=== PATIENT | female | born 1980 | race Native Hawaiian/Other Pacific Islander ===

== ENCOUNTER 2017-04-13 09:21 | Observation (INO) | payer OTHER ==
[2017-04-12 11:06] VITALS: BMI 20.5
[2017-04-13] MEDS ORDERED: Propofol 10 mg/ml Inj (20 ML) ONE (10:52)
[2017-04-13] MEDS ORDERED: Rocuronium 10 mg/ml (5 ml) ONE (10:52)
[2017-04-13] MEDS ORDERED: Midazolam 2 MG/2 ML VIAL ONE (10:52)
[2017-04-13] MEDS ORDERED: Lidocaine 4% (Laryng-O-Jet) Kit MM ONE (10:52)
[2017-04-13] MEDS ORDERED: Succinylcholine 200 mg/10 ml Inj IV ONE (10:52)
[2017-04-13 10:53] LABS: BASO % 0.6 % (0.0-2.0); EOS % 0.4 % (0.0-4.0); HEMATOCRIT 39.5 % (34.0-47.0); LYMPH # 2.1 K/uL (1.0-4.3); LYMPH % 52.5 % (20.0-40.0); MEAN CELL VOLUME 93.2 fl (81.0-99.0); MEAN CORPUSCULAR HEMOGLOBIN 31.1 pg (27.0-31.0); MEAN CORPUSCULAR HGB CONC 33.4 g/dL (33.0-37.0); MEAN PLATELET VOLUME 10.2 fl (7.2-11.7); MONO # 0.2 K/uL (0.0-0.8); MONO % 4.7 % (0.0-10.0); NEUT # 1.6 K/uL (1.8-7.0); NEUT % 41.8 % (50.0-75.0); NRBC % 0.1 % (0.0-0.0); RED CELL DISTRIBUTION WIDTH 12.8 % (11.5-14.5); WHITE BLOOD COUNT 3.9 K/uL (4.8-10.8)
[2017-04-13] MEDS ORDERED: Bupivacaine 0.5% Inj(30mL) ONE (11:04)
[2017-04-13] MEDS ORDERED: Desflurane Inhalation Anesthetic Liq (240 ml) ONE (11:25)
[2017-04-13] MEDS ORDERED: Lactated Ringer's 1,000 ML IV ONE ×2 (11:35)
[2017-04-13] MEDS ORDERED: Bupivacaine 0.5% 50 ML IJ ONE ×2 (11:57)
[2017-04-13] MEDS ORDERED: ePHEDrine 50 mg/ml Inj ONE (12:18)
[2017-04-13] MEDS ORDERED: Lactated Ringer's 1,000 ML IV SCH (14:11)
[2017-04-13] MEDS: HYDROmorphone 0.5 mg/0.5 ml ISec IVP PRN ×3 (14:43→15:15)
[2017-04-13] MEDS ORDERED: DiphenhydrAMINE 50 mg/ml Inj IVP PRN (16:24)
[2017-04-13] MEDS ORDERED: Oxycodone/Acetaminophen 5/325 mg Tab PO ONE (17:40)
[2017-04-13] MEDS: Oxycodone/Acetaminophen 5/325 mg Tab PO PRN (23:19)
[2017-04-14] MEDS ORDERED: Vitamins A & D Oint UD Foilpak ONE (03:11)
[2017-04-14] MEDS: Oxycodone/Acetaminophen 5/325 mg Tab PO PRN (08:18)
[2017-04-14 09:56] VITALS: RESP 20
[2017-04-14 11:33] VITALS: BP 90/49; PULSE 60; TEMP 98; O2SAT 100
--- NOTE | 2017-04-21 14:09 | OP ---
PROCEDURE DATE: 04/13/2017 SURGEON: Dr. Filipe Salguero MD TRACK REPAIR LABORER: Riley Ramsey MD. PREOPERATIVE DIAGNOSES: Dysmenorrhea, dyspareunia, pelvic pain, dysuria, bladder pain, rule out endometriosis, uterine septum. 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 Riley Ramsey is separately dictating incidental appendectomy COMPLICATIONS: None. SPECIMENS: Ovarian adhesions, anterior rectal lesion, left periureteral endometriosis, left uterosacral endometriosis, left ovarian fossa endometriosis, left perirectal endometriosis, right periureteral endometriosis, right iliac artery endometriosis, right periureteral endometriosis, anterior rectal endometriosis, right uterosacral endometriosis, right perirectal endometriosis, right abdominal wall, and appendix. ESTIMATED BLOOD LOSS: Minimal. INDICATION FOR PROCEDURE: This patient is a 37-year-old female with a prior surgery for a large uterine septum as well as a vaginal septum. She had symptomatology, which was mostly pain with most prominent symptoms being dyspareunia and bladder pain. Prior to the surgery, she was counseled with regard to the risk and benefits of the procedure and the possibility that the surgery may correct her symptoms. She was also counseled with regard to the potential risk of surgery including but not limited to bleeding, infection, bowel and bladder injury, and she also understood that given the complexity of the procedure, she would require ureteral stenting with injection of dye in order to identify the ureters with the robotic surgery for the dissection of the possible endometriosis. She signed the consent and she was taken to the OR. DESCRIPTION OF PROCEDURE: After the patient signed the consent, she was taken to the OR. She was placed under anesthesia in the dorsal lithotomy position. Extensive padding was placed in every area prone to compression. At this point, the patient was prepped and draped in a standard fashion and a timeout was performed according to the hospital procedures. At this point, a cystoscopy was introduced into the bladder under direct vision. A foster cystoscopy was performed and attention was paid to both ureteral orifices, which were in the normal anatomic position. The left ureteral orifice was catheterized with a Chinese open-ended ureteral catheter. A solution of ICG was then injected for a total of 5 mL into the left ureter after the ureteral catheter was advanced into the distal ureter. The ureteral catheter was then removed. Attention was then paid to the right ureteral orifice at which point, the catheter was advanced to the level of the right distal ureter and an additional 5 mL of IC green were injected into the right ureter. The ureteral catheter was then removed. The bladder was inspected and noted to be free of tumor, stones or bleeding sources. The cystoscope was then removed and a 16-Chinese Gilbert catheter was placed. At this point, attention was in the vaginal area where a speculum was placed in the vagina. The cervix appeared to be overall normal with the exception of some mild signs of slightly enlarged cervical ostia due to the patient's prior LEEP surgery. There was abnormality on the right hand side by the cervix at the level of the sulcus and fornix where a large defect was noticed in the top vaginal wall. The defect was blunted. I examined this with great care. There was no evidences of a second cervix or any other duplications of Mullerian organs. The patient had a prior surgery for a vaginal septum with uterine septum and was told that there was a second access to her uterus from the cervix, but I was not able to identify any of such secondary tracts either natural or fistulous. At this point, the cervix was dilated and the hysteroscope was inserted into uterine cavity. After adequate distention was obtained, the cavity, both ostia were visualized. There was still a remaining part of the septum which I proceed to cut by inserting hysteroscopic scissor into the cavity and progressively dissecting the fibrous part of the septum up to until it appeared to be no more fibrotic tissue rather just muscular. At this point, there was no bleeding and the instruments were removed and I examined the endocervical canal, appearing also to be normal on my way out. At this point, a uterine manipulator was placed in the uterus and attention was on the abdomen where an incision was made right below the umbilicus. With a classic open laparoscopy technique, the abdominal cavity was entered in a sharp fashion to incise the fascia and then blunt. At this point, a trocar was inserted and the abdomen was insufflated. Under direct visualization, three additional trocars were inserted, right upper quadrant, left upper quadrant, and left mid quadrant. At this point, the da Brigitte Xi robot was brought onto the field and it was docked. Findings were as follows: There were multiple areas of endometriosis. The left ovary was firmly adherent to the posterior aspect of the uterus. There was a large area of endometriosis thick by involving the left pelvic sidewall, the posterior cervix, the right pelvic sidewall also had implants, but the right ovary appeared to be relatively free of disease. There was an endometriosis implant on the surface of the peritoneum overlying the right iliac artery on the pelvic brim and there was also an abdominal wall implant on the right hand side overlying the appendix. The appendix appeared to be cut into some adhesions and had some redness at the tip which was suspicious of endometriosis. At this point, the procedure was started. The first part of the surgery involved freeing the ovary from adhesions. The ovary was firmly adherent to the posterior aspect of the uterus and the left pelvic sidewall. So, a very careful dissection was performed, elevating the ovary and detaching it from the peritoneal sidewall. Throughout this process, the ureter was constantly identified utilizing fluorescence. In order to perform an ideal dissection, the ureter was identified and a dissection was performed, starting further up in the upper part of the peritoneum where the underlying the ureter was identified using flurescence and progressive dissection was performed in a step by step fashion, dissected from the fibrotic encasing. At this point, I was able to elevate the left ovary and progressively dissected the large swath of peritoneum containing deep infiltrating endometriosis. The whole area in the left pelvic sidewall was then progressively freed up and another swath of the endometriosis fibrotic was dissected. At this point, attention was by the left uterine vessel with again an extensive dissection was performed in a step by step fashion, excising multiple areas of deep endometriosis. Adhesions involving the ovary were also excised. The ovary was left undamaged and in optimal condition. The left tube appeared to be in good condition as well. At this point, attention was in the posterior aspect of the cervix where a peritoneum containing endometriosis was progressively excising in step by step fashion and the anterior rectal endometriotic lesion was also identified in the rectovaginal fold and this was excised with an extreme care, not to enter the rectum and this was performed under the guidance of the general surgery. At this point, attention was on the right hand side of the pelvis where the ovary was inspected, appeared to be free of lesions, but there were endometriotic implants on the right pelvic sidewall. The ureter was identified and utilizing fluorescent technology, the retroperitoneum was entered and again a ureterolysis was performed lateralizing the ureter and identifying an area of peritoneum containing endometriosis which was progressively dissected. A thick area of endometriosis was identified in the right perirectal area and was also excised. There was also an area of endometriosis lying on the peritoneum on the right external iliac artery. The peritoneum overlying the artery was elevated and cyst dissected. It was a full endometriotic cyst, which was dissected in a step by step fashion without entering or affecting the iliac vessel at the pelvic brim. An area of endometriosis was also noted on the abdominal wall overlying the appendix and this was also excised without any complication. The rest of the pelvis was inspected and the upper abdomen is inspected appearing to be free of endometriosis implants or adhesions. The right tube appeared to be in good condition. At this point, Dr. Ramsey from general surgery performed an appendectomy that will to be dictated separately. At this point, once the appendix was removed and the pelvis was irrigated, the robot was undocked. The instruments were removed. The abdomen was desufflated and incisions were closed in layers with 0 Vicryl for the fascia and the 4-0 Monocryl for the skin. At this point, attention was in the vaginal area, where I reinspected the original sulcus there and I opted for a revision of the defect as the defect presented a reservoir for menstrual blood causing very extended longer menstrual cycles for the patient. This was done with a running suture of 3-0 Vicryl. At the end of the procedure, all tapes and instruments counts were correct. The patient tolerated the procedure well and was taken to recovery room in excellent condition. Filipe Salguero MD [facility]
== END 2017-04-14 13:40 | disposition home or self-care (01) ==
LOC: H.OPSURG 09:21 → H.EROBSV 19:20 → H.PEDS 20:18
PROVIDERS: ADMIT Obstetrics & Gynecology Reproductive Endocrinology; ATTEND Obstetrics & Gynecology Reproductive Endocrinology
DX: N80.0 Endometriosis of uterus (principal); N80.1 Endometriosis of ovary; N80.5 Endometriosis of intestine; N73.6 Female pelvic peritoneal adhesions (postinfective); N94.6 Dysmenorrhea, unspecified; N94.10 Unspecified dyspareunia
CPT/HCPCS: 36415; 44970; 52005; 58559; 58560; 58563; 85025; 86850; 86900; 88305; C1729; G0378; J0330; J0690; J1170; J2001; J2250; J2405; J2704; J3010; J7030; J7040; J7120; S2900

== ENCOUNTER 2017-04-15 18:54 | Observation (INO) | payer OTHER ==
[2017-04-15 18:55] VITALS: BMI 20.5
[2017-04-15] MEDS ORDERED: Iohexol 240 (50 ml) PO ONE (19:18)
[2017-04-15] MEDS ORDERED: Sodium Chloride 0.9% 1,000 ML IV STA (19:19)
[2017-04-15] MEDS ORDERED: Piperacillin/Tazobact 3.375 GM in Sodium Chloride 0.9% 100 ML IVPB STA (19:19)
[2017-04-15] MEDS ORDERED: Iohexol 240 (50 ml) ONE (19:31)
[2017-04-15] MEDS ORDERED: Piperacillin/Tazobact 3.375 gm Inj IVPB ONE ×2 (19:32→19:33)
--- NOTE | 2017-04-15 20:01 | ED PDOC ---
HPI: Abdomen Time Seen by Provider: 04/15/17 19:05 Chief Complaint (Nursing): Abdominal Pain Chief Complaint (Provider): Abdominal Pain History Per: Patient Onset/Duration Of Symptoms: Hrs (last night) Outside of [place] travel?: No Current Symptoms Are (Timing): Still Present Location Of Pain/Discomfort: Other (lower abdomen) Associated Symptoms: Fever. denies: Nausea, Urinary Symptoms Last Bowel Movement: Days Ago Additional Complaint(s): 37 year old female status post operation day 2 presents to ED with complaints of abdominal pain and fever since last night. Patient states she had a laparoscopic appendectomy and exploratory laparoscopy for endometriosis done by Dr. Ramsey and Dr. Salguero respectively x2 days ago. Patient notes abdominal pain is localized to surgical incision area. (+) nausea and poor appetite. (-) urinary symptoms or bowel movement. 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 Patient states Dr. Ramsey recommended she come to ED for evaluation of fever. PCP: None Past Medical History Reviewed: Historical Data, Nursing Documentation, Vital Signs Vital Signs: Last Vital Signs Temp 98.4 F 04/16/17 07:37 Pulse 70 04/16/17 07:37 Resp 20 04/16/17 07:37 BP 96/63 L 04/16/17 07:37 Pulse Ox 97 04/16/17 07:37 - Medical History PMH: Anemia Denies: Chronic Kidney Disease - Surgical History Surgical History: Appendectomy (laparoscopic) Denies: No Surg Hx Other surgeries: exploratory laparoscopy for endometriosis - Family History Family History: States: No Known Family Hx - Social History Current smoker - smoking cessation education provided: No Ex-Smoker (has not smoked in the last 12 months): No Alcohol: Occasional Drugs: Denies - Home Medications Home Medications: Ambulatory Orders Medication Instructions Recorded oxyCODONE/Acetaminophen [Percocet 1 mg PO Q6 PRN 04/13/17 5/325 mg Tab] - Allergies Allergies/Adverse Reactions: Allergies Allergy/AdvReac Type Severity Reaction Status Date / Time gluten AdvReac DIARRHEA Verified 04/12/17 11:06 Review of Systems ROS Statement: Except As Marked, All Systems Reviewed And Found Negative Constitutional: Positive for: Fever Gastrointestinal: Positive for: Nausea, Abdominal Pain, Constipation (no BM), Other ((+) poor appetite) Genitourinary Female: Negative for: Dysuria, Frequency, Incontinence, Hematuria Physical Exam - Reviewed Nursing Documentation Reviewed: Yes Vital Signs Reviewed: Yes - Physical Exam Appears: Positive for: Well, Non-toxic, In Acute Distress (Minimal distress) Head Exam: Positive for: ATRAUMATIC Skin: Positive for: Normal Color, Warm, Dry Eye Exam: Positive for: Normal appearance ENT: Positive for: Pharynx Is (clear). Negative for: Normal ENT Inspection ( tacky mucous membranes) Neck: Positive for: Normal Cardiovascular/Chest: Positive for: Regular Rate, Rhythm. Negative for: Murmur Respiratory: Positive for: Normal Breath Sounds. Negative for: Respiratory Distress Gastrointestinal/Abdominal: Positive for: Soft, Tenderness (Mild tenderness to bilateral lower abdomen), Other (5 incision sites on lower abdomen. Intact, clean, no erythema. ). Negative for: Mass, Guarding, Rebound Back: Positive for: Normal Inspection Extremity: Positive for: Normal ROM. Negative for: Deformity Neurologic/Psych: Positive for: Alert, Oriented. Negative for: Motor/Sensory Deficits - Laboratory Results Result Diagrams: 04/16/17 06:00 04/16/17 06:00 - ECG O2 Sat by Pulse Oximetry: 99 (RA) Pulse Ox Interpretation: Normal Medical Decision Making Medical Decision Makin Discussed case with Dr. Ramsey, who recommended CT A/P to be performed. Initial impression: post-op fever and pain DDx: intra-abdominal abcess, UTI, PNA, viral syndrome Initial plan: * CTA A/P * Labs * UPreg * UDip * Dextrose IV * NS IV * Iohexol 50mL PO * Piperacillin 3.375gm NS 100mL IVPB * Zofran Inj 4mg IVP * BCx * UCx * OBS MED/SURG ADMISSION * UA * Re-eval [address] De La Paz (certified surgical assistant) for evaluation in ED. Dr. Ramsey recommends Zosyn. 2009 Dr. De La Paz present in ED to evaluate patient. 2099 Dr Salguero present in ED to evaluate patient DW Dr Salguero. Agrees with hospitalization for antibiotics, pending CT. EXAM: CT Abdomen and Pelvis With Intravenous Contrast EXAM DATE/TIME: 04/15/2017 7:18 PM CLINICAL HISTORY: 37 years old, female; Pain; Abdominal pain and other: Pelvis; Periumbilical; Prior surgery; Surgery date: 3-7 days post-operative; Surgery type: Endometrial surgery and appendix; Additional info: Post surgical fever TECHNIQUE: Axial computed tomography images of the abdomen and pelvis with intravenous contrast. All CT scans at this facility use one or more dose reduction techniques, viz.: automated exposure control; ma/kV adjustment per patient size (including targeted exams where dose is matched to indication; i.e. head); or iterative reconstruction technique. Coronal and sagittal reformatted images were created and reviewed. CONTRAST: 90 mL of OMNIPAQUE administered intravenously. COMPARISON: No relevant prior studies available. FINDINGS: Lower thorax: No acute findings. ABDOMEN: Liver: Unremarkable. No mass. Gallbladder and bile ducts: Unremarkable. No calcified stones. No ductal dilation. Pancreas: Unremarkable. No mass. No ductal dilation. Spleen: Unremarkable. No splenomegaly. Adrenals: Unremarkable. No mass. Kidneys and ureters: Unremarkable. No solid mass. No hydronephrosis. Stomach and bowel: Unremarkable. No obstruction. No mucosal thickening. Appendix: No findings to suggest acute appendicitis. PELVIS: Bladder: Unremarkable. No mass. Reproductive: 2.5 x 0.9 x 2.8 cm fluid collection in the right adnexa. No definite rim enhancement to specifically suggest an abscess. Continued followup is recommended. ABDOMEN and PELVIS: Intraperitoneal space: No pneumoperitoneum is postoperative in nature. Small free fluid in the pelvis. Bones/joints: No acute fracture. No dislocation. Soft tissues: Unremarkable. Vasculature: Unremarkable. No abdominal aortic aneurysm. Lymph nodes: Unremarkable. No enlarged lymph nodes. IMPRESSION: 2.5 x 0.9 x 2.8 cm fluid collection in the right adnexa. No definite rim enhancement to specifically suggest an abscess. Continued followup is recommended. Thank you for allowing us to participate in the care of your patient. Dictated and Authenticated by: Reagan Lay MD 04/15/2017 11:41 PM Eastern Time ([place] & [place]) Disposition - Clinical Impression Clinical Impression: Abdominal pain - Disposition Disposition Time: 19:19 Condition: FAIR - Pt Status Changed To: Hospital Disposition Of: Observation (MED/SURG) - POA Present On Arrival: None
[2017-04-15 20:25] LABS: BASO % 0.1 % (0.0-2.0); HEMATOCRIT 34.9 % (34.0-47.0); LYMPH # 0.8 K/uL (1.0-4.3); LYMPH % 6.3 % (20.0-40.0); MEAN CELL VOLUME 93.6 fl (81.0-99.0); MEAN CORPUSCULAR HEMOGLOBIN 31.2 pg (27.0-31.0); MEAN CORPUSCULAR HGB CONC 33.4 g/dL (33.0-37.0); MEAN PLATELET VOLUME 10.2 fl (7.2-11.7); MONO # 0.3 K/uL (0.0-0.8); MONO % 2.4 % (0.0-10.0); NEUT # 11.5 K/uL (1.8-7.0); NEUT % 91.2 % (50.0-75.0); PLATELET COUNT 176 K/uL (130-400); WHITE BLOOD COUNT 12.6 K/uL (4.8-10.8)
[2017-04-15] MEDS ORDERED: HYDROmorphone 0.5 mg/0.5 ml ISec IVP PRN (20:32)
[2017-04-15] MEDS ORDERED: Oxycodone/Acetaminophen 5/325 mg Tab PO PRN (20:32)
[2017-04-15 20:34] LABS: ALB/GLOB RATIO 1.3 (1.0-2.1); ALKALINE PHOSPHATASE 47 U/L (38-126); ALT/SGPT 30 U/L (9-52); AST/SGOT 19 U/L (14-36); BLOOD UREA NITROGEN 6 mg/dl (7-17); CALCIUM 9.1 mg/dL (8.4-10.2); CARBON DIOXIDE 26 mmol/L (22-30); CHLORIDE 102 mmol/L (98-107); GFR AFRICAN-AMERICAN > 60; GLUCOSE,RANDOM 119 mg/dL (65-105); POTASSIUM 3.6 MMOL/L (3.6-5.0); SODIUM 138 mmol/l (132-148); TOTAL PROTEIN 6.6 G/DL (6.3-8.2)
--- NOTE | 2017-04-15 21:09 | CP.PCM.HP ---
History of Present Illness - History of Present Illness History of Present Illness: Surgery: Dr. Ramsey CC: post op fever HPI: Patient is a 37 y/o female w/ stage 4 endometriosis with significant history of robotic endometriosis, appendectomy, hysteroscopy and cystoscopy surgery on 04/13/17 presents complaining of fever for the past 24hrs. Yesterday, patient reports she started having chills and checked her temperature noting it to be 100.5. She states she took ibuprofen which relieved her fever. Today she states her fever was as high as 102. She again reports taking ibuprofen which relieved fever. She states she has had a lot of gas since her surgery but denies severe intense abdominal pain. She reports taking minimal percocet for post op pain. She denies having much of an appetite but reports tolerating soups , breads, and rice. She states she had some nausea yesterday but denies vomiting. She denies chest pain, shortness of breath, cough or sputum production. She states she is ambulating in her home and denies leg swelling or calf pain. She denies any redness, drainage or severe pain at her incision sites. She does state she is having some vaginal bleeding but flow is equivalent to a light period. She denies any foul odor, discharge, or large clots from vagina. She reports urinating without hesitancy, pain or hematuria. PMH: endometriosis PSH: as above Social: occasional ETOH use, denies drug or tobacco use. Lives with significant other at home. Present on Admission - Present on Admission Any Indicators Present on Admission: No Review of Systems - Review of Systems All systems: reviewed and no additional remarkable complaints except Review of Systems: unless stated in HPI Past Patient History - Past Medical History & Family History Past Medical History?: Yes - Past Social History Alcohol: Occasional Drugs: Denies - CARDIAC Hx Cardiac Disorders: No Other/Comment: IRREGULAR HEARTBEAT-BUT NOTHING DONE - PULMONARY Hx Respiratory Disorders: No - NEUROLOGICAL Hx Neurological Disorder: No - HEENT Hx HEENT Problems: No - RENAL Hx Chronic Kidney Disease: No - ENDOCRINE/METABOLIC Hx Endocrine Disorders: No - HEMATOLOGICAL/ONCOLOGICAL Hx Anemia: Yes - INTEGUMENTARY Hx Dermatological Problems: No - MUSCULOSKELETAL/RHEUMATOLOGICAL Hx Musculoskeletal Disorders: No - GASTROINTESTINAL Hx Gastrointestinal Disorders: No - GENITOURINARY/GYNECOLOGICAL Hx Genitourinary Disorders: No - PSYCHIATRIC Hx Emotional Abuse: No Hx Physical Abuse: No - SURGICAL HISTORY Hx Appendectomy: Yes (laparoscopic) - ANESTHESIA Hx Anesthesia: Yes Hx Anesthesia Reactions: No Hx Malignant Hyperthermia: No Meds Allergies/Adverse Reactions: Allergies Allergy/AdvReac Type Severity Reaction Status Date / Time gluten AdvReac DIARRHEA Verified 04/12/17 11:06 Physical Exam - Constitutional Appears: Non-toxic, No Acute Distress - Head Exam Head Exam: ATRAUMATIC, NORMOCEPHALIC - Eye Exam Eye Exam: EOMI, Normal appearance - ENT Exam ENT Exam: Mucous Membranes Moist - Respiratory Exam Respiratory Exam: NORMAL BREATHING PATTERN. absent: Respiratory Distress - Cardiovascular Exam Cardiovascular Exam: REGULAR RHYTHM. absent: Tachycardia - GI/Abdominal Exam GI & Abdominal Exam: Soft, Tenderness (albino-incisional which is appropriate). absent: Distended, Guarding, Hernia, Rebound, Rigid Additional comments: incisions clean and dry with minimal redness to most right/lateral and umbilical site. No evidence or concern for infection. - Extremities Exam Extremities exam: Positive for: normal inspection. Negative for: calf tenderness, pedal edema, tenderness - Neurological Exam Neurological exam: Alert, Oriented x3 - Psychiatric Exam Psychiatric exam: Normal Affect, Normal Mood - Skin Skin Exam: Dry, Intact, Normal Color, Warm Results - Vital Signs Recent Vital Signs: Last Vital Signs Temp 98.7 F 04/15/17 18:57 Pulse 84 04/15/17 18:57 Resp 16 04/15/17 18:57 BP 98/55 L 04/15/17 18:57 Pulse Ox 99 04/15/17 20:23 - Labs Result Diagrams: 04/15/17 19:45 04/15/17 19:45 Labs: Laboratory Results - last 24 hr 04/15/17 04/15/17 19:45 19:45 WBC 12.6 H D RBC 3.73 L Hgb 11.6 L Hct 34.9 MCV 93.6 MCH 31.2 H MCHC 33.4 RDW 13.0 Plt Count 176 MPV 10.2 Neut % (Auto) 91.2 H Lymph % (Auto) 6.3 L [place] % (Auto) 2.4 Eos % (Auto) 0.0 Baso % (Auto) 0.1 Neut # 11.5 H Lymph # 0.8 L [place] # 0.3 Eos # 0.0 Baso # 0.0 Sodium 138 Potassium 3.6 Chloride 102 Carbon Dioxide 26 Anion Gap 12 BUN 6 L Creatinine 0.6 L Est GFR ( Amer) > 60 Est GFR (Non-Af Amer) > 60 Random Glucose 119 H Calcium 9.1 Total Bilirubin 1.0 AST 19 ALT 30 Alkaline Phosphatase 47 Total Protein 6.6 Albumin 3.7 Globulin 2.9 Albumin/Globulin Ratio 1.3 Assessment & Plan - Assessment and Plan (Free Text) Assessment: 37 y/o female w/ post operative fever Plan: -f/u CT scan -f/u CXR -blood cx, urine cx -am labs -pain control -IVFs -NPO but meds -IV broad spectrum abx -keep incisions clean and dry -encourage ambulation and incentive spirometer use -Heparin for DVT prophylaxis in am, SCDs -d/w Dr. Roxy Gill PGY3
[2017-04-15 21:20] LABS: RBC URINE 13 /hpf (0-3); URINE BACTERIA RARE (<OCC); URINE BILIRUBIN NEGATIVE (NEGATIVE); URINE BLOOD MODERATE (NEGATIVE); URINE COLOR YELLOW (YELLOW); URINE GLUCOSE (UA) NEG (Normal); URINE KETONE TRACE mg/dL (NEGATIVE); URINE LEUKOCYTE ESTERASE NEG Leu/uL (Negative); URINE PROTEIN NEGATIVE (NEGATIVE); URINE UROBILINOGEN 0.2-1.0 mg/dL (0.2-1.0); WBC URINE 2 /hpf (0-5)
[2017-04-15] MEDS ORDERED: Sodium Chloride 0.9% 50 ML IV ONE (22:09)
[2017-04-15] MEDS ORDERED: Iohexol 300 100 ML IJ ONE (22:09)
[2017-04-15 22:20] LABS: NEUTROPHIL 86 % (42-75); TOTAL CELLS COUNTED 100
[2017-04-16] MEDS: Dextrose 5%/Lactated Ringer's 1,000 ML IV SCH ×3 (00:02→17:21)
[2017-04-16] MEDS: Piperacillin/Tazobact 3.375 GM in Sodium Chloride 0.9% 100 ML IVPB SCH ×3 (00:38→20:27)
[2017-04-16 08:01] LABS: BASO % 0.2 % (0.0-2.0); EOS % 0.1 % (0.0-4.0); HEMATOCRIT 30.2 % (34.0-47.0); LYMPH # 1.3 K/uL (1.0-4.3); MEAN CELL VOLUME 93.4 fl (81.0-99.0); MEAN CORPUSCULAR HEMOGLOBIN 31.4 pg (27.0-31.0); MEAN CORPUSCULAR HGB CONC 33.6 g/dL (33.0-37.0); MEAN PLATELET VOLUME 9.5 fl (7.2-11.7); MONO # 0.3 K/uL (0.0-0.8); MONO % 3.6 % (0.0-10.0); NEUT # 7.5 K/uL (1.8-7.0); NEUT % 82.1 % (50.0-75.0); RED CELL DISTRIBUTION WIDTH 12.8 % (11.5-14.5); WHITE BLOOD COUNT 9.1 K/uL (4.8-10.8)
[2017-04-16 08:34] LABS: ALB/GLOB RATIO 1.2 (1.0-2.1); ALKALINE PHOSPHATASE 37 U/L (38-126); ALT/SGPT 29 U/L (9-52); AST/SGOT 17 U/L (14-36); BILIRUBIN,TOTAL 0.7 mg/dl (0.2-1.3); BLOOD UREA NITROGEN 5 mg/dl (7-17); CALCIUM 8.3 mg/dL (8.4-10.2); CARBON DIOXIDE 27 mmol/L (22-30); CHLORIDE 103 mmol/L (98-107); GFR AFRICAN-AMERICAN > 60; GLUCOSE,RANDOM 95 mg/dL (65-105); POTASSIUM 3.7 MMOL/L (3.6-5.0); SODIUM 137 mmol/l (132-148); TOTAL PROTEIN 5.8 G/DL (6.3-8.2)
--- NOTE | 2017-04-16 14:02 | CT ---
PROCEDURE: CT Abdomen and Pelvis with oral and IV contrast. HISTORY: post surgical fever COMPARISON: None available. TECHNIQUE: Contiguous axial images of the abdomen and pelvis. Oral and IV contrast was administered. Coronal and Sagittal reformats generated and reviewed. Contrast dose: 90 mL Omnipaque IV Radiation dose: Total exam DLP = 354.22 mGy-cm. This CT exam was performed using one or more of the following dose reduction techniques: Automated exposure control, adjustment of the mA and/or kV according to patient size, and/or use of iterative reconstruction technique. FINDINGS: LOWER THORAX: Bibasilar atelectasis. There is no visible pleural effusion or pneumothorax. LIVER: Unremarkable. GALLBLADDER AND BILE DUCTS: Unremarkable. PANCREAS: Unremarkable. SPLEEN: Unremarkable. ADRENALS: Unremarkable. KIDNEYS AND URETERS: The kidneys enhance symmetrically. No hydronephrosis or obstructing renal calculus. BLADDER: The urinary bladder appears unremarkable. REPRODUCTIVE: Uterus is present. Right adnexal fluid collection spanning approximately 2.5 x 0.9 x 2.8 cm. No clear evidence of peripheral rim enhancement to suggest an abscess. Correlate clinically. APPENDIX: The appendix is not identified. No secondary signs of acute appendicitis. BOWEL: The stomach is nondistended. The bowel loops appear within normal limits of caliber without evidence of intestinal obstruction. PERITONEUM: Small pelvic free fluid. Free air consistent with history provided of postsurgical status. LYMPH NODES: No bulky lymphadenopathy identified. VASCULATURE: No aortic aneurysm. BONES: No acute osseous abnormality is detected. OTHER FINDINGS: None. IMPRESSION: Right adnexal fluid collection spanning approximately 2.5 x 0.9 x 2.8 cm. No clear evidence of peripheral rim enhancement to suggest an abscess. Correlate clinically. Numerous foci of free air consistent with history provided of postsurgical status. Correlate clinically. Small pelvic free fluid. Preliminary impression was provided by virtual radiologic.
--- NOTE | 2017-04-16 14:15 | RAD ---
HISTORY: post op fever COMPARISON: No prior. TECHNIQUE: Chest PA and lateral FINDINGS: LUNGS: Mild bibasilar atelectasis PLEURA: No significant pleural effusion identified. No pneumothorax apparent. CARDIOVASCULAR: Normal. OSSEOUS STRUCTURES: No significant abnormalities. VISUALIZED UPPER ABDOMEN: Free air seen under the right hemidiaphragm consistent with this patient's recent history of surgery. OTHER FINDINGS: None. IMPRESSION: Mild bibasilar atelectasis Small pneumoperitoneum seen on the right hemidiaphragm secondary to recent surgery. . Note these pieces findings were discussed with md do resident urgent care contract officer Dr. Gdofrey at approximately 2 p.m. with written down and read back verification.
--- NOTE | 2017-04-16 17:24 | CP.PCM.PN ---
Subjective - Date & Time of Evaluation Date of Evaluation: 04/16/17 Time of Evaluation: 07:30 - Subjective Subjective: Surgery: Dr. Ramsey Patient doing well today. Denies fever overnight. Denies abdominal pain, n/v. She overall is feeling well. Objective - Vital Signs/Intake and Output Vital Signs (last 24 hours): Temp Pulse Resp BP Pulse Ox 101.1 F H 76 18 109/72 97 04/16/17 16:56 04/16/17 16:28 04/16/17 16:28 04/16/17 16:28 04/16/17 16:28 Intake and Output: 04/16/17 04/16/17 06:59 18:59 Intake Total 800 Balance 800 - Medications Medications: Current Medications Acetaminophen (Tylenol 325mg Tab) 650 mg PO Q6 PRN PRN Reason: Fever >100.4 F Last Admin: 04/16/17 16:56 Dose: 650 mg Docusate Sodium (Colace) 100 mg PO BID [facility] Last Admin: 04/16/17 16:58 Dose: Not Given Famotidine (Pepcid) 20 mg PO BID [facility] Last Admin: 04/16/17 16:54 Dose: 20 mg Heparin Sodium (Porcine) (Heparin) 5,000 units SC Q12 UYRIDIA PRN Reason: Protocol Last Admin: 04/16/17 08:59 Dose: 5,000 units Hydromorphone HCl (Dilaudid) 0.5 mg IVP Q4 PRN PRN Reason: Pain, severe (8-10) Dextrose/Lactated Ringer's (Dextrose 5%/Lactated Ringer's) 1,000 mls @ 100 mls/ hr IV .Q10H [facility] Last Admin: 04/16/17 07:55 Dose: Not Given Piperacillin Sod/Tazobactam (Sod 3.375 gm/ Sodium Chloride) 100 mls @ 100 mls/ hr IVPB Q12 [facility] Last Admin: 04/16/17 09:00 Dose: 100 mls/hr Ondansetron HCl (Zofran Inj) 4 mg IVP Q4 PRN PRN Reason: Nausea/Vomiting Oxycodone/Acetaminophen (Percocet 5/325 Mg Tab) 1 tab PO Q4 PRN PRN Reason: Pain, moderate (4-7) Stop: 04/18/17 20:33 Last Admin: 04/16/17 00:21 Dose: 1 tab - Labs Labs: 04/16/17 06:00 04/16/17 06:00 - Constitutional Appears: Well, Non-toxic, No Acute Distress - ENT Exam ENT Exam: Mucous Membranes Moist - Respiratory Exam Respiratory Exam: NORMAL BREATHING PATTERN. absent: Respiratory Distress - Cardiovascular Exam Cardiovascular Exam: REGULAR RHYTHM - GI/Abdominal Exam GI & Abdominal Exam: Soft. absent: Guarding, Rigid, Tenderness Assessment and Plan - Assessment and Plan (Free Text) Assessment: 37 y/o female w/ post op fever Plan: -ok for diet this am -patient afebrile overnight -encourage OOB -IS use -cont IV abx -f/u diet tolerance -d/w Dr. Roxy Gill PGY3
[2017-04-17 07:00] LABS: ALKALINE PHOSPHATASE 42 U/L (38-126); ALT/SGPT 29 U/L (9-52); AST/SGOT 20 U/L (14-36); BILIRUBIN,TOTAL 0.7 mg/dl (0.2-1.3); BLOOD UREA NITROGEN 6 mg/dl (7-17); CALCIUM 8.8 mg/dL (8.4-10.2); CARBON DIOXIDE 27 mmol/L (22-30); CHLORIDE 105 mmol/L (98-107); GFR AFRICAN-AMERICAN > 60; GLUCOSE,RANDOM 95 mg/dL (65-105); SODIUM 139 mmol/l (132-148)
[2017-04-17 07:01] LABS: ALB/GLOB RATIO 1.1 (1.0-2.1)
[2017-04-17 07:49] LABS: BASO % 0.3 % (0.0-2.0); EOS # 0.1 K/uL (0.0-0.7); EOS % 0.8 % (0.0-4.0); HEMATOCRIT 30.9 % (34.0-47.0); LYMPH % 15.3 % (20.0-40.0); MEAN CELL VOLUME 93.1 fl (81.0-99.0); MEAN CORPUSCULAR HEMOGLOBIN 31.2 pg (27.0-31.0); MEAN CORPUSCULAR HGB CONC 33.6 g/dL (33.0-37.0); MEAN PLATELET VOLUME 9.6 fl (7.2-11.7); MONO # 0.3 K/uL (0.0-0.8); MONO % 4.9 % (0.0-10.0); NEUT # 5.1 K/uL (1.8-7.0); NEUT % 78.7 % (50.0-75.0); RED CELL DISTRIBUTION WIDTH 12.5 % (11.5-14.5); WHITE BLOOD COUNT 6.4 K/uL (4.8-10.8)
[2017-04-17 08:23] LABS: POTASSIUM 3.8 MMOL/L (3.6-5.0)
[2017-04-17] MEDS: Piperacillin/Tazobact 3.375 GM in Sodium Chloride 0.9% 100 ML IVPB SCH (08:48)
[2017-04-17 16:18] VITALS: BP 105/70; PULSE 75; RESP 18; TEMP 99.1; O2SAT 96
--- NOTE | 2017-04-22 09:51 | PCM.OP ---
Operative Report - Operative Report Date of Surgery/Procedure: 04/13/17 Time of Surgery/Procedure: 08:00 Surgeon: Dr. Rliey Ramsey Professional Architect: Dr. Filipe Salguero Anesthesia/Sedation: general/Dr. Sosa Pre-Operative Diagnosis: abdominal pain from endometriosis Post-Operative Diagnosis: same Indication for Surgery: abdominal pain from endometriosis after multiple previous attempts to completely excise the endometriosis lesions Operative Findings: Endometriosis involving the rectum in multiple areas and the appendix Procedure/Operation Description: 1-Lysis of adhesions. 2-Excision of albino- rectal endometriosis (times 2). 3-Appendectomy. Brief History: This is a 37 year old woman brought to the operating room by Dr. Filipe Salguero, who after initiating the laparotomy encounted multiple adhesions to the omentum, large and small bowel. He asked for intraoperative consultaion from general surgery. The patient had multiple previous attempts surgically to remove the endometriosis lesions, however, they were not completely successful. Description of the procedure:Dr. Salguero had initiated the laparotmy and as soon as the peritoneum was entered multiple adhesions from her multiple previous surgeries were encountered (separate dictation Dr. Salguero). Soon after the peritoneum was enetered multiple adhesions were encountered and with blunt and sharp dissection with the aid of electrocautery the initial adhesions to the omentum were lysed. Similar adhesions to the small and large bowel were lysed in a simialr manner. The pelvis was exposed and the bowel was run from the ligament of Trietz to the rectum above the peritoneal reflection. Kings lesions were noted on the rectum. The first lesion was more proximal and was incised circumferentially with the aid of electrocautery. Then using blunt and sharp dissection the lesion was excised with a small margin of normal tissue. After being appropriately marked it was sent to pathology as a separate specimen. The second, more distal lesions was excised in a similar manner, and after being appropriately marked was also sent to pathology as a separate specimen. The appendix was exposed, after adenolysis of the cecum and the mesentery was incided with electrocautery. The appendiceal artery was dessicated and the appendix was exposed to the base. With 3-0 vicryl suture a purse-string was fashioned at the base. The appendix was then transcted and after being appropriately marked was sent to pathology as a separate specimen. Hemostasis was examined and deemed adeqaute. The operation was then turned over to Dr. Salguero (separate dictation Dr. Salguero). Estimated Blood Loss: 10cc Complications: none Specimen: 4-bmed-fuldjg endometriosis. 2-vzjy-[id number] endometriosis. 3-appendix Discharge & Condition: stable
== END 2017-04-17 18:30 | disposition home or self-care (01) ==
LOC: H.ER 18:54 → H.ERHOLD 19:19 → H.MEDSURG1 04-16
PROVIDERS: ADMIT Surgery; ATTEND Surgery
DX: G89.18 Other acute postprocedural pain (principal); R10.9 Unspecified abdominal pain; R50.82 Postprocedural fever
CPT/HCPCS: 36415; 71020; 74177; 80053; 81003; 81025; 85025; 87040; 87086; 96365; 96375; 97161; 97165; 99283; G0378; G8978; G8979; G8980; G8987; G8988; G8989; J1644; J2405; J2543; J7040; J7120; Q9966; Q9967